=== PATIENT | female | born 1965 | race African-American/Black ===

== ENCOUNTER 2019-03-14 22:14 | Observation (INO) | payer MEDICARE, OTHER ==
[~2019-03-14] VITALS: Ht 172.7 cm; Wt 80.3 kg
[2019-03-14] MEDS ORDERED: Hydrocortisone 100mg Inj IV ONE (22:30)
[2019-03-14] MEDS ORDERED: LORazepam Inj 2mg/ml 1ml IV ONE (22:30)
--- NOTE | 2019-03-14 22:36 | Emergency Room Report ---
History of Present Illness General Chief Complaint: Altered Level of Consciousness Source: Family Member, EMS Present Illness HPI Patient's mother was called by the patient's children because she was having some shaking episodes and speaking incoherently. Patient's mother tried to take her to the hospital but the patient was acting bizarrely and she pulled over and called 911. Paramedics were summoned. They were unable to get much history aside from that the patient has a history of lupus and migraines. An Accu-Chek in the field was 68 sitting and they had sinus bradycardia on EKG. The patient was unable to answer any questions with them. Here the patient will not respond whether she is having pain. She does have a history of migraines according to the mother. Mom denies any drug use that she is aware of. Patient is not answering questions at this time. Allergies: Coded Allergies: No Known Allergies (Verified , 09/07/06) UNABLE TO ASSESS (Unverified , 03/14/19) Patient History Limited by: medical condition Past Medical History: see triage record, migraines Social History: Reports: drug use - thc Social History Narrative with family Last Menstrual Period: n/a Reviewed Nursing Documentation: PMH: Agreed; PSxH: Agreed Nursing Documentation-PMH Past Medical History: No History, Except For Review of Systems All Other Systems: limited Physical Exam Vital Signs Date Time Temp Pulse Resp B/P (MAP) Pulse Ox O2 Delivery O2 Flow Rate FiO2 03/14/19 22:10 98.2 90 18 118/59 97 Sp02 EP Interpretation: reviewed, normal General Appearance: alert - not answering questions, states she wants to go home, mild distress Head: normocephalic Eyes: bilateral eye normal inspection, bilateral eye PERRL, bilateral eye EOMI ENT: moist mucus membranes Neck: supple Respiratory: lungs clear, normal breath sounds Cardiovascular #1: regular rate, rhythm Cardiovascular #2: 2+ radial (R) Gastrointestinal: normal inspection, normal bowel sounds, non tender, no mass, non-distended Musculoskeletal: back normal, normal range of motion Neurologic: alert, tube closing machine operator III-XII nml as tested, motor strength/tone normal, DTRs symmetric, sensory intact, other - not answering questions, perseveration Psychiatric: anxious Skin: normal inspection, warm/dry Medical Decision Making Diagnostic Impression: Primary Impression: Transient alteration of awareness Additional Impression: Migraine Qualified Codes: G43.809 - Other migraine, not intractable, without status migrainosus ER Course Patient presents with altered level of consciousness with history of lupus and migraines. At this point she has a nonfocal neurologic exam. Differential includes cerebritis, electrolyte imbalance, steroid withdrawal, exacerbation of underlying psychiatric illness, migraine variant, brain bleed, partial complex seizures amongst others. The patient will be evaluated with CT of the head, chest x-ray, EKG and labs including sedimentation rate and TSH ammonia and lactic acid. The patient will be given a dose of hydrocortisone and also Ativan. EKG without injury. CT head no acute pathology. CXR clear. Labs unremarkable except for slightly elevated LFTs. Patient improving, but still not answering questions. More calm Family state lupus has been in remission for many years and that patient not taking prednisone. Patient now Ox3 but does not remember coming into the hospital. C/O headache. Reglan and Benadryl given with improvement. Due to severe nature of initial presentation, patient admitted for observation on telemetry. Discussed with Dr. Zimmerman. Laboratory Tests Test 03/14/19 22:25 03/14/19 23:00 03/15/19 04:45 White Blood Count 3.8 K/UL (4.8-10.8) L 3.9 K/UL (4.8-10.8) L Red Blood Count 4.51 M/UL (4.20-5.40) 3.93 M/UL (4.20-5.40) L Hemoglobin 12.9 G/DL (12.0-16.0) 11.3 G/DL (12.0-16.0) L Hematocrit 39.4 % (37.0-47.0) 35.3 % (37.0-47.0) L Mean Corpuscular Volume 87 FL (80-99) 90 FL (80-99) Mean Corpuscular Hemoglobin 28.6 PG (27.0-31.0) 28.8 PG (27.0-31.0) Mean Corpuscular Hemoglobin Concent 32.7 G/DL (32.0-36.0) 32.0 G/DL (32.0-36.0) Red Cell Distribution Width 13.4 % (11.6-14.8) 13.8 % (11.6-14.8) Platelet Count 316 K/UL (150-450) 268 K/UL (150-450) Mean Platelet Volume 5.8 FL (6.5-10.1) L 6.3 FL (6.5-10.1) L Neutrophils (%) (Auto) 54.1 % (45.0-75.0) % (45.0-75.0) Lymphocytes (%) (Auto) 36.9 % (20.0-45.0) % (20.0-45.0) Monocytes (%) (Auto) 7.8 % (1.0-10.0) % (1.0-10.0) Eosinophils (%) (Auto) 0.0 % (0.0-3.0) % (0.0-3.0) Basophils (%) (Auto) 1.2 % (0.0-2.0) % (0.0-2.0) Sodium Level 138 MMOL/L (136-145) 143 MMOL/L (136-145) Potassium Level 3.9 MMOL/L (3.5-5.1) 3.4 MMOL/L (3.5-5.1) L Chloride Level 101 MMOL/L (98-107) 107 MMOL/L (98-107) Carbon Dioxide Level 23 MMOL/L (21-32) 24 MMOL/L (21-32) Anion Gap 14 mmol/L (5-15) 12 mmol/L (5-15) Blood Urea Nitrogen 9 mg/dL (7-18) 10 mg/dL (7-18) Creatinine 0.8 MG/DL (0.55-1.30) 0.7 MG/DL (0.55-1.30) Estimate Glomerular Filtration Rate > 60 mL/min (>60) > 60 mL/min (>60) Glucose Level 90 MG/DL (74-106) 95 MG/DL (74-106) Lactic Acid Level 1.80 mmol/L (0.4-2.0) Calcium Level 9.8 MG/DL (8.5-10.1) 8.6 MG/DL (8.5-10.1) Total Bilirubin 1.5 MG/DL (0.2-1.0) H Direct Bilirubin 0.2 MG/DL (0.0-0.3) Aspartate Amino Transferase (AST) 45 U/L (15-37) H Alanine Aminotransferase (ALT) 27 U/L (12-78) Alkaline Phosphatase 66 U/L (46-116) Ammonia 14 umol/L (11-32) < 10 umol/L (11-32) L Total Creatine Kinase 94 U/L (26-308) Troponin I 0.000 ng/mL (0.000-0.056) Total Protein 8.3 G/DL (6.4-8.2) H Albumin 4.4 G/DL (3.4-5.0) Globulin 3.9 g/dL Albumin/Globulin Ratio 1.1 (1.0-2.7) Thyroid Stimulating Hormone (TSH) 0.729 uiU/mL (0.358-3.740) Salicylates Level < 2.0 ug/mL (2.8-20) L Acetaminophen Level < 2 MCG/ML (10-30) L Serum Alcohol < 3 mg/dL Urine Color Yellow Urine Appearance Clear Urine pH 9 (4.5-8.0) Urine Specific [place] 1.015 (1.005-1.035) Urine Protein 1+ (NEGATIVE) H Urine Glucose (UA) Negative (NEGATIVE) Urine Ketones 4+ (NEGATIVE) H Urine Blood Negative (NEGATIVE) Urine Nitrite Negative (NEGATIVE) Urine Bilirubin Negative (NEGATIVE) Urine Urobilinogen Normal MG/DL (0.0-1.0) Urine Leukocyte Esterase 1+ (NEGATIVE) H Urine RBC 0 /HPF (0 - 2) Urine WBC 0-2 /HPF (0 - 2) Urine Squamous Epithelial Cells None /LPF (NONE/OCC) Urine Bacteria None /HPF (NONE) Urine Mucus Moderate /LPF (NONE/OCC) H Urine Opiates Screen Negative (NEGATIVE) Urine Barbiturates Screen Negative (NEGATIVE) Phencyclidine (PCP) Screen Negative (NEGATIVE) Urine Amphetamines Screen Negative (NEGATIVE) Urine Benzodiazepines Screen Negative (NEGATIVE) Urine Cocaine Screen Negative (NEGATIVE) Urine Marijuana (THC) Screen Positive (NEGATIVE) H Differential Total Cells Counted 100 Neutrophils % (Manual) 87 % (45-75) H Lymphocytes % (Manual) 10 % (20-45) L Monocytes % (Manual) 3 % (1-10) Eosinophils % (Manual) 0 % (0-3) Basophils % (Manual) 0 % (0-2) Band Neutrophils 0 % (0-8) Platelet Estimate Adequate Platelet Morphology Normal Red Blood Cell Morphology Hypochromasia 1+ Erythrocyte Sedimentation Rate 26 MM/HR (0-30) Phosphorus Level 3.8 MG/DL (2.5-4.9) Magnesium Level 1.6 MG/DL (1.8-2.4) L C-Reactive Protein, Quantitative < 0.4 mg/dL (0.00-0.90) Vitamin B12 Level 466 PG/ML (193-986) Folate 18.9 NG/ML (8.6-58.9) Rapid Plasma Reagin Pending EKG Diagnostic Results Rate: bradycardiac Rhythm: NSR ST Segments: no acute changes Rhythm Strip Diag. Results EP Interpretation: yes Rhythm: no PVC's, no ectopy, other - kayla rate 49 Chest X-Ray Diagnostic Results Chest X-Ray Diagnostic Results : Chest X-Ray Ordered: Yes # of Views/Limited/Complete: 1 View Indication: Other EP Interpretation: Yes Interpretation: no consolidation, no effusion, no pneumothorax Impression: No acute disease Electronically Signed by: Electronically signed by Uday Jones MD CT/MRI/US Diagnostic Results CT/MRI/US Diagnostic Results : Imaging Test Ordered: head Impression no lesions Last Vital Signs Date Time Temp Pulse Resp B/P (MAP) Pulse Ox O2 Delivery O2 Flow Rate FiO2 03/15/19 04:00 98.4 56 18 108/59 (75) 99 03/15/19 02:00 Room Air Status: improved Disposition: PLACE IN OBSERVATION Condition: Serious Uday Jones MD Mar 14, 2019 22:36
[2019-03-14 22:46] LABS: BASOPHILS % (AUTO) 1.2 % (0.0-2.0); HEMATOCRIT 39.4 % (37.0-47.0); HEMOGLOBIN 12.9 G/DL (12.0-16.0); LYMPHOCYTES % (AUTO) 36.9 % (20.0-45.0); MEAN CORPUSCULAR VOLUME 87 FL (80-99); MONOCYTES % (AUTO) 7.8 % (1.0-10.0); NEUTROPHILS % (AUTO) 54.1 % (45.0-75.0); PLATELET COUNT 316 K/UL (150-450); RED BLOOD COUNT 4.51 M/UL (4.20-5.40); RED CELL DISTRIBUTION WIDTH 13.4 % (11.6-14.8); WHITE BLOOD COUNT 3.8 K/UL (4.8-10.8)
[2019-03-14 22:50] VITALS: BP 118/59
[2019-03-14 22:59] LABS: ANION GAP 14 mmol/L (5-15); BLOOD UREA NITROGEN 9 mg/dL (7-18); CALCIUM 9.8 MG/DL (8.5-10.1); CARBON DIOXIDE 23 MMOL/L (21-32); CHLORIDE 101 MMOL/L (98-107); CREATININE 0.8 MG/DL (0.55-1.30); POTASSIUM 3.9 MMOL/L (3.5-5.1); SODIUM 138 MMOL/L (136-145)
[2019-03-14 23:10] LABS: APPEARANCE,URINE CLEAR; BILIRUBIN, URINE NEGATIVE (NEGATIVE); GLUCOSE, URINE (UA) NEGATIVE (NEGATIVE); KETONES,URINE 4+ (NEGATIVE); LEUKOCYTE ESTERASE ,URINE 1+ (NEGATIVE); NITRITE,URINE NEGATIVE (NEGATIVE); PH,URINE 9 (4.5-8.0); PROTEIN,URINE 1+ (NEGATIVE); UROBILINOGEN,URINE NORMAL MG/DL (0.0-1.0)
[2019-03-14 23:11] LABS: COLOR,URINE YELLOW
[2019-03-14 23:13] LABS: ALANINE AMINOTRANSFERASE 27 U/L (12-78); ALBUMIN 4.4 G/DL (3.4-5.0); ALBUMIN/GLOBULIN RATIO 1.1 (1.0-2.7); ALKALINE PHOSPHATASE 66 U/L (46-116); ASPARTATE AMINO TRANSFERASE 45 U/L (15-37); BILIRUBIN,TOTAL 1.5 MG/DL (0.2-1.0); CREATINE KINASE 94 U/L (26-308)
[2019-03-14 23:14] LABS: BILIRUBIN,DIRECT 0.2 MG/DL (0.0-0.3)
[2019-03-15] VITALS (8 sets, daily range): BP systolic 108–134; BP diastolic 59–77
[2019-03-15] MEDS ORDERED: D5NS 1000ml IV ONE (00:33)
[2019-03-15] MEDS ORDERED: Tubing IV Secondary IV ONE (00:33)
[2019-03-15] MEDS ORDERED: NS 275ml ONE (00:33)
[2019-03-15] MEDS ORDERED: Metoclopramide 10mg/2ml Inj IVP ONE (00:45)
[2019-03-15] MEDS ORDERED: DiphenhydrAMINE 50mg/ml Inj IVP ONE (00:45)
--- NOTE | 2019-03-15 03:00 | General Progress Note ---
Assessment/Plan Plan: [facility] An independent Hospitalist group, where every patient is our [facility] Internal Medicine and Hospitalist Overnight Note Please contact us at Please text me on Voalte from 8a-6p regarding any patient questions From 6p-8a please call [phone] Case discussed with ED Physician. Chart, labs, imaging, vitals and other flowsheets reviewed. Patient presents with chest pain Plan overnight will be admit under observation to [facility] for troponins and ekg's Full admission orders completed. Full and complete H+P to follow Time of note may not reflect time of encounter. Signed: Yvonne Zimmerman DO [facility] Pager: [phone] Subjective Allergies: Coded Allergies: No Known Allergies (Verified , 09/07/06) UNABLE TO ASSESS (Unverified , 03/14/19) Objective Last 24 Hour Vital Signs Date Time Temp Pulse Resp B/P (MAP) Pulse Ox O2 Delivery O2 Flow Rate FiO2 03/15/19 01:55 98.2 59 16 116/77 (90) 100 03/15/19 01:45 98.2 79 19 121/64 100 Room Air 03/15/19 01:42 98.2 79 19 121/64 100 Room Air 03/14/19 22:50 56 18 Room Air 03/14/19 22:50 98.2 58 18 118/59 97 Room Air 03/14/19 22:10 98.2 90 18 118/59 97 Intake and Output 03/14/19 03/15/19 18:59 06:59 Intake Total 1000 ml Balance 1000 ml Intake IV Total 1000 ml # Voids 1 Laboratory Tests 03/14/19 22:25: White Blood Count 3.8L, Red Blood Count 4.51, Hemoglobin 12.9, Hematocrit 39.4, Mean Corpuscular Volume 87, Mean Corpuscular Hemoglobin 28.6, Mean Corpuscular Hemoglobin Concent 32.7, Red Cell Distribution Width 13.4, Platelet Count 316, Mean Platelet Volume 5.8L, Neutrophils (%) (Auto) 54.1, Lymphocytes (%) (Auto) 36.9, Monocytes (%) (Auto) 7.8, Eosinophils (%) (Auto) 0.0, Basophils (%) (Auto ) 1.2, Sodium Level 138, Potassium Level 3.9, Chloride Level 101, Carbon Dioxide Level 23, Anion Gap 14, Blood Urea Nitrogen 9, Creatinine 0.8, Estimat Glomerular Filtration Rate > 60, Glucose Level 90, Lactic Acid Level 1.80, Calcium Level 9.8, Total Bilirubin 1.5H, Direct Bilirubin 0.2, Aspartate Amino Transf (AST/SGOT) 45H, Alanine Aminotransferase (ALT/SGPT) 27, Alkaline Phosphatase 66, Ammonia 14, Total Creatine Kinase 94, Troponin I 0.000, Total Protein 8.3H, Albumin 4.4, Globulin 3.9, Albumin/Globulin Ratio 1.1, Thyroid Stimulating Hormone (TSH) 0.729, Salicylates Level < 2.0L, Acetaminophen Level < 2L, Serum Alcohol < 3 03/14/19 23:00: Urine Color Yellow, Urine Appearance Clear, Urine pH 9, Urine Specific [place] 1.015, Urine Protein 1+H, Urine Glucose (UA) Negative, Urine Ketones 4+H, Urine Blood Negative, Urine Nitrite Negative, Urine Bilirubin Negative, Urine Urobilinogen Normal, Urine Leukocyte Esterase 1+H, Urine RBC 0, Urine WBC 0-2, Urine Squamous Epithelial Cells None, Urine Bacteria None, Urine Mucus ModerateH , Urine Opiates Screen Negative, Urine Barbiturates Screen Negative, Phencyclidine (PCP) Screen Negative, Urine Amphetamines Screen Negative, Urine Benzodiazepines Screen Negative, Urine Cocaine Screen Negative, Urine Marijuana (THC) Screen PositiveH Height (Feet): 5 Height (Inches): 8.00 Weight (Pounds): 150 Yvonne Zimmerman DO Mar 15, 2019 03:00
[2019-03-15] MEDS ORDERED: LORazepam Inj 2mg/ml 1ml IV PRN (03:15)
[2019-03-15] MEDS ORDERED: Milk of Magnesia 30ml Ud ORAL PRN (03:15)
[2019-03-15] MEDS ORDERED: Acetaminophen 650 MG SUPP RECTAL PRN ×2 (03:15)
[2019-03-15] MEDS ORDERED: LORazepam 1mg tab ORAL PRN (03:15)
[2019-03-15] MEDS: HYDROmorphone 1mg/ml Carpuject IVP PRN ×2 (04:08→11:49)
[2019-03-15] MEDS ORDERED: Enoxaparin 40mg Inj SUBQ SCH (04:15)
[2019-03-15 06:03] LABS: HEMATOCRIT 35.3 % (37.0-47.0); HEMOGLOBIN 11.3 G/DL (12.0-16.0); MEAN CORPUSCULAR VOLUME 90 FL (80-99); PLATELET COUNT 268 K/UL (150-450); RED BLOOD COUNT 3.93 M/UL (4.20-5.40); RED CELL DISTRIBUTION WIDTH 13.8 % (11.6-14.8); WHITE BLOOD COUNT 3.9 K/UL (4.8-10.8)
[2019-03-15 06:36] LABS: ANION GAP 12 mmol/L (5-15); BLOOD UREA NITROGEN 10 mg/dL (7-18); CALCIUM 8.6 MG/DL (8.5-10.1); CARBON DIOXIDE 24 MMOL/L (21-32); CHLORIDE 107 MMOL/L (98-107); CREATININE 0.7 MG/DL (0.55-1.30); PHOSPHORUS 3.8 MG/DL (2.5-4.9); POTASSIUM 3.4 MMOL/L (3.5-5.1); SODIUM 143 MMOL/L (136-145)
[2019-03-15 06:46] LABS: AMMONIA < 10 umol/L (11-32)
[2019-03-15] MEDS: Docusate 100mg cap ORAL SCH ×2 (08:34→21:00)
[2019-03-15] MEDS ORDERED: Gadavist 7.5mMol/7.5ml vial IV PRN (09:00)
--- NOTE | 2019-03-15 09:01 | History & Physical ---
History and Physical History & Physicial Pt seen and examined at bedside, case d/w RN and family member at bedside as well (sister). Full H+P to follow Admitted for shaking on the ground, no hx of seizure disorder however does have history of lupus, pt denies taking any medications, however she is not alert and oriented on my exam. Will start IV fluids, reg diet. Pt denied chest pain. Will ask for Neurology consult and MRI brain to r/o lupus cerebritis. Place pt in seizure precautions. Emely Lewis MD Mar 15, 2019 09:01
[2019-03-15] MEDS: Ketorolac 30mg Inj IV PRN ×2 (09:29→16:54)
--- NOTE | 2019-03-15 09:38 | Diagnostic Imaging Report ---
EXAM: XR Chest, 1 View CLINICAL HISTORY: SOB TECHNIQUE: Frontal view of the chest. COMPARISON: Chest x-ray, 03/14/19 3665 FINDINGS: Lungs: Unremarkable. No consolidation. Pleural space: Unremarkable. No pneumothorax. Heart: Unremarkable. No cardiomegaly. Mediastinum: Unremarkable. Bones/joints: Unremarkable. IMPRESSION: No acute process.
[2019-03-15] MEDS: D5NS 1,000 ML IV SCH ×2 (11:38→23:45)
--- NOTE | 2019-03-15 12:14 | Diagnostic Imaging Report ---
EXAM: MR Head Without And With Intravenous Contrast CLINICAL HISTORY: ALOC, H/A,SEIZURES, 15CC GADAVIST ADMINISTERED TECHNIQUE: Magnetic resonance images of the head/brain without and with intravenous contrast in multiple planes. COMPARISON: CT head 03/14/19 FINDINGS: Brain: Unremarkable. No mass. No hemorrhage. No acute infarct. No abnormal enhancement Ventricles: Unremarkable. No ventriculomegaly. Bones/joints: Hyperostosis of the skull. Soft tissues: Fatty scalp with the thinned areas of the scalp bilaterally Sinuses: Mild ethmoid sinus mucosal thickening. No acute sinusitis. Mastoid air cells: Unremarkable as visualized. No mastoid effusion. Orbits: Unremarkable as visualized. IMPRESSION: No acute findings.
--- NOTE | 2019-03-15 16:30 | Consultation ---
History of Present Illness General Date patient seen: Mar 15, 2019 Chief Complaint: Altered Level of Consciousness Referring physician: Dr. Emely Lewis Present Illness HPI The patient is a 53-year-old woman with a history of lupus and migraines, who was admitted with altered mental status. She reports that she had a very bad migraine today and knows she was found shaking on the floor this afternoon by her daugher. As per ED notes, patient's mother was called by the patient's children because she was having some shaking episodes and speaking incoherently. At this point, she patient's mother tried to take her to the hospital but the patient was acting bizarrely and she pulled over and called 911. She has a long history of migraines and is treated for them at [facility]. She also has a history of lupus, but family states she is in remission. This evening she reports that her headache has resolved and that she has been given pain medication. She denies every having had an episode like the one she had today previously today. She also reports that she is currently under management with [facility] neurology for her migraine treatment. She has previously taken sumatriptan shots/ oral tablets , as well as other preventative monthly injections that she cannot currently name. She is intact with no focal deficits on exam at this time. She is still minorly photophobic. She has been out of bed this evening and ambulated without difficulty to the bathroom. Allergies: Coded Allergies: No Known Allergies (Verified , 09/07/06) UNABLE TO ASSESS (Unverified , 03/14/19) Medication History No Active Prescriptions or Reported Meds Patient History Limited by: medical condition History Provided By: Patient Healthcare decision maker Resuscitation status Full Code Advanced Directive on File Past Medical/Surgical History Past Medical/Surgical History: (1) SLE (systemic lupus erythematosus) (2) Migraine Review of Systems Constitutional: Reports: see HPI Eye: Reports: see HPI ENT: Denies: no symptoms, see HPI, ear pain, ear discharge, nose pain, nose congestion, throat pain, throat swelling, mouth pain, hearing loss, nasal discharge, other Respiratory: Denies: no symptoms, see HPI, cough, orthopnea, shortness of breath, stridor, wheezing, [place], sputum, other Cardiovascular: Denies: no symptoms, see HPI, chest pain, edema, palpitations, syncope, PND, other Gastrointestinal: Denies: no symptoms, see HPI, abdominal pain, constipation, diarrhea, nausea, vomiting, melena, hematemesis, other Genitourinary: Denies: no symptoms, see HPI, discharge, dysuria, frequency, hematuria, pain, retention, incontinence, urgency, vag bleed/dc, other Musculoskeletal: Denies: no symptoms, see HPI, back pain, gout, joint pain, joint swelling, muscle pain, muscle stiffness, other Skin: Denies: no symptoms, see HPI, rash, change in color, change in hair/nails , dryness, lesions, other Psychiatric: Denies: no symptoms, see HPI, prior hx, anxiety, depressed feelings, emotional problems, SI, HI, hallucinations, other Neurological: Reports: see HPI Endocrine: Denies: no symptoms, see HPI, excessive sweating, flushing, intolerance to temperature, increased thirst, increased urine, unexplained weight loss, other Hematologic/Lymphatic: Denies: no symptoms, see HPI, anemia, blood clots, easy bleeding, easy bruising, swollen glands, diathesis, other Physical Exam General Appearance: WD/WN, no apparent distress, alert Lines, tubes and drains: peripheral HEENT: normocephalic, atraumatic, anicteric, mucous membranes moist, PERRL Neck: non-tender, normal alignment, supple, normal inspection Respiratory/Chest: chest wall non-tender, lungs clear Cardiovascular/Chest: normal peripheral pulses Extremities: normal range of motion, non-tender, normal inspection, no calf tenderness, normal capillary refill, non-pitting, no edema Skin Exam: normal pigmentation, warm/dry 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, no motor/sensory deficits, alert, oriented x 3, responsive, normal mood/affect, no Babinski Musculoskeletal: normal muscle bulk, no effusion Last 24 Hour Vital Signs Date Time Temp Pulse Resp B/P (MAP) Pulse Ox O2 Delivery O2 Flow Rate FiO2 03/15/19 16:00 97.0 61 18 113/63 (80) 99 03/15/19 12:00 98.1 57 18 123/73 (90) 99 03/15/19 11:35 59 03/15/19 08:00 98.4 59 18 110/69 (83) 100 03/15/19 07:40 54 03/15/19 06:50 58 108/66 (80) 03/15/19 06:31 Room Air 03/15/19 04:00 98.4 56 18 108/59 (75) 99 03/15/19 03:38 59 03/15/19 02:00 Room Air 03/15/19 01:58 68 03/15/19 01:55 98.2 59 16 116/77 (90) 100 03/15/19 01:45 98.2 79 19 121/64 100 Room Air 03/15/19 01:42 98.2 79 19 121/64 100 Room Air 03/14/19 22:50 56 18 Room Air 03/14/19 22:50 98.2 58 18 118/59 97 Room Air 03/14/19 22:10 98.2 90 18 118/59 97 Intake and Output 03/14/19 03/15/19 19:00 07:00 Intake Total 1000 ml Balance 1000 ml Intake IV Total 1000 ml # Voids 1 Laboratory Tests Test 03/14/19 22:25 03/14/19 23:00 03/15/19 04:45 White Blood Count 3.8 K/UL (4.8-10.8) L 3.9 K/UL (4.8-10.8) L Red Blood Count 4.51 M/UL (4.20-5.40) 3.93 M/UL (4.20-5.40) L Hemoglobin 12.9 G/DL (12.0-16.0) 11.3 G/DL (12.0-16.0) L Hematocrit 39.4 % (37.0-47.0) 35.3 % (37.0-47.0) L Mean Corpuscular Volume 87 FL (80-99) 90 FL (80-99) Mean Corpuscular Hemoglobin 28.6 PG (27.0-31.0) 28.8 PG (27.0-31.0) Mean Corpuscular Hemoglobin Concent 32.7 G/DL (32.0-36.0) 32.0 G/DL (32.0-36.0) Red Cell Distribution Width 13.4 % (11.6-14.8) 13.8 % (11.6-14.8) Platelet Count 316 K/UL (150-450) 268 K/UL (150-450) Mean Platelet Volume 5.8 FL (6.5-10.1) L 6.3 FL (6.5-10.1) L Neutrophils (%) (Auto) 54.1 % (45.0-75.0) % (45.0-75.0) Lymphocytes (%) (Auto) 36.9 % (20.0-45.0) % (20.0-45.0) Monocytes (%) (Auto) 7.8 % (1.0-10.0) % (1.0-10.0) Eosinophils (%) (Auto) 0.0 % (0.0-3.0) % (0.0-3.0) Basophils (%) (Auto) 1.2 % (0.0-2.0) % (0.0-2.0) Sodium Level 138 MMOL/L (136-145) 143 MMOL/L (136-145) Potassium Level 3.9 MMOL/L (3.5-5.1) 3.4 MMOL/L (3.5-5.1) L Chloride Level 101 MMOL/L (98-107) 107 MMOL/L (98-107) Carbon Dioxide Level 23 MMOL/L (21-32) 24 MMOL/L (21-32) Anion Gap 14 mmol/L (5-15) 12 mmol/L (5-15) Blood Urea Nitrogen 9 mg/dL (7-18) 10 mg/dL (7-18) Creatinine 0.8 MG/DL (0.55-1.30) 0.7 MG/DL (0.55-1.30) Estimat Glomerular Filtration Rate > 60 mL/min (>60) > 60 mL/min (>60) Glucose Level 90 MG/DL (74-106) 95 MG/DL (74-106) Lactic Acid Level 1.80 mmol/L (0.4-2.0) Calcium Level 9.8 MG/DL (8.5-10.1) 8.6 MG/DL (8.5-10.1) Total Bilirubin 1.5 MG/DL (0.2-1.0) H Direct Bilirubin 0.2 MG/DL (0.0-0.3) Aspartate Amino Transf (AST/SGOT) 45 U/L (15-37) H Alanine Aminotransferase (ALT/SGPT) 27 U/L (12-78) Alkaline Phosphatase 66 U/L (46-116) Ammonia 14 umol/L (11-32) < 10 umol/L (11-32) L Total Creatine Kinase 94 U/L (26-308) Troponin I 0.000 ng/mL (0.000-0.056) Total Protein 8.3 G/DL (6.4-8.2) H Albumin 4.4 G/DL (3.4-5.0) Globulin 3.9 g/dL Albumin/Globulin Ratio 1.1 (1.0-2.7) Thyroid Stimulating Hormone (TSH) 0.729 uiU/mL (0.358-3.740) Salicylates Level < 2.0 ug/mL (2.8-20) L Acetaminophen Level < 2 MCG/ML (10-30) L Serum Alcohol < 3 mg/dL Urine Color Yellow Urine Appearance Clear Urine pH 9 (4.5-8.0) Urine Specific [place] 1.015 (1.005-1.035) Urine Protein 1+ (NEGATIVE) H Urine Glucose (UA) Negative (NEGATIVE) Urine Ketones 4+ (NEGATIVE) H Urine Blood Negative (NEGATIVE) Urine Nitrite Negative (NEGATIVE) Urine Bilirubin Negative (NEGATIVE) Urine Urobilinogen Normal MG/DL (0.0-1.0) Urine Leukocyte Esterase 1+ (NEGATIVE) H Urine RBC 0 /HPF (0 - 2) Urine WBC 0-2 /HPF (0 - 2) Urine Squamous Epithelial Cells None /LPF (NONE/OCC) Urine Bacteria None /HPF (NONE) Urine Mucus Moderate /LPF (NONE/OCC) H Urine Opiates Screen Negative (NEGATIVE) Urine Barbiturates Screen Negative (NEGATIVE) Phencyclidine (PCP) Screen Negative (NEGATIVE) Urine Amphetamines Screen Negative (NEGATIVE) Urine Benzodiazepines Screen Negative (NEGATIVE) Urine Cocaine Screen Negative (NEGATIVE) Urine Marijuana (THC) Screen Positive (NEGATIVE) H Differential Total Cells Counted 100 Neutrophils % (Manual) 87 % (45-75) H Lymphocytes % (Manual) 10 % (20-45) L Monocytes % (Manual) 3 % (1-10) Eosinophils % (Manual) 0 % (0-3) Basophils % (Manual) 0 % (0-2) Band Neutrophils 0 % (0-8) Platelet Estimate Adequate Platelet Morphology Normal Red Blood Cell Morphology Hypochromasia 1+ Erythrocyte Sedimentation Rate 26 MM/HR (0-30) Phosphorus Level 3.8 MG/DL (2.5-4.9) Magnesium Level 1.6 MG/DL (1.8-2.4) L C-Reactive Protein, Quantitative < 0.4 mg/dL (0.00-0.90) Vitamin B12 Level 466 PG/ML (193-986) Folate 18.9 NG/ML (8.6-58.9) Rapid Plasma Reagin Pending Height (Feet): 5 Height (Inches): 8.00 Weight (Pounds): 177 Medications Current Medications Medications (Trade) Dose Ordered Sig/Allyson Route PRN Reason Start Time Stop Time Status Last Admin Dose Admin Acetaminophen (Tylenol) 650 mg Q4H PRN ORAL Mild Pain (Pain Scale 1-3) 03/15/19 03:15 04/14/19 03:14 03/15/19 13:07 Acetaminophen (Tylenol) 650 mg Q4H PRN ORAL fever 03/15/19 03:15 04/14/19 03:14 Acetaminophen (Tylenol) 650 mg Q4H PRN RECTAL Mild Pain (Pain Scale 1-3) 03/15/19 03:15 04/14/19 03:14 Acetaminophen (Tylenol) 650 mg Q4H PRN RECTAL fever 03/15/19 03:15 04/14/19 03:14 Bisacodyl (Dulcolax) 10 mg DAILYPRN PRN RECTAL Constipation 03/15/19 03:15 04/14/19 03:14 Dextrose (Dextrose 50%) 25 ml Q30M PRN IV Hypoglycemia 03/15/19 03:15 04/14/19 03:14 Dextrose (Dextrose 50%) 50 ml Q30M PRN IV Hypoglycemia 03/15/19 03:15 04/14/19 03:14 Dextrose/Sodium Chloride 1,000 ml @ 100 mls/hr Q10H IV 03/15/19 10:30 04/14/19 10:29 03/15/19 11:38 Docusate Sodium (Colace) 100 mg EVERY 12 HOURS ORAL 03/15/19 09:00 04/14/19 08:59 03/15/19 08:34 Enoxaparin Sodium (Lovenox) 40 mg Q24H SUBQ 03/15/19 04:15 04/14/19 04:14 03/15/19 04:09 Gadobutrol (Gadavist) 7.5 mmol NOW PRN IV Radiology Procedure 03/15/19 09:00 03/17/19 08:59 Hydromorphone HCl (Dilaudid) 0.5 mg Q6H PRN IVP breakthrouh 03/15/19 03:15 03/22/19 03:14 03/15/19 11:49 Ketorolac Tromethamine (Toradol 30mg) 15 mg Q6H PRN IV For Pain 03/15/19 08:00 03/20/19 07:59 03/15/19 09:29 Lorazepam (Ativan 2mg/ml 1ml) 0.5 mg Q4H PRN IV For Anxiety or seizure 03/15/19 03:15 03/22/19 03:14 Lorazepam (Ativan) 1 mg Q4H PRN ORAL For Anxiety / agitation 03/15/19 03:15 03/22/19 03:14 Magnesium Hydroxide (Mom) 30 ml HSPRN PRN ORAL Constipation 03/15/19 03:15 04/14/19 03:14 Ondansetron HCl (Zofran) 4 mg Q6H PRN IVP Nausea & Vomiting 03/15/19 03:15 04/14/19 03:14 03/15/19 14:41 Pantoprazole (Protonix) 40 mg DAILY ORAL 03/15/19 09:00 04/14/19 08:59 03/15/19 08:34 Assessment/Plan Problem List: (1) Migraine Assessment & Plan: Long, well recorded history but no episodes of LOC or shaking, or other focal deficit ever reported by the patient. Reporting that the symptoms of her headache have now largely resolved. ICD Codes: G43.909 - Migraine, unspecified, not intractable, without status migrainosus SNOMED: 19739916 Qualifiers: Qualified Codes: G43.809 - Other migraine, not intractable, without status migrainosus (2) Transient alteration of awareness Assessment & Plan: Found unconscious and shaking today by family member. Has never had a seizure or episode of LOC previously. Followed by neurology at [facility] for migraines. DIscussed that should be followed up with EEG as an outpatient with Neuro at [facility] ICD Codes: R40.4 - Transient alteration of awareness SNOMED: 670398000 (3) SLE (systemic lupus erythematosus) ICD Codes: M32.9 - Systemic lupus erythematosus, unspecified SNOMED: 17482230 Qualifiers: Status: doing well, stable, tolerating diet Stacey Cade N.P. Mar 15, 2019 16:30
[2019-03-15] MEDS ORDERED: HYDROmorphone 1mg/ml Carpuject IVP PRN ×2 (18:15→18:30)
[2019-03-15] MEDS ORDERED: HYDROmorphone 1mg/NS 50ml IVPB 50 ML IVPB PRN (18:15)
[2019-03-15] MEDS ORDERED: Hydromorphone 0.5mg/0.5ml inj IVP PRN (18:30)
--- NOTE | 2019-03-15 20:00 | History and Physical ---
History of Present Illness General Date patient seen: Mar 15, 2019 Time patient seen: 09:00 Reason for Hospitalization: Altered Level of Consciousness Present Illness HPI Patient is a 53 y/o AA female who presents with altered level of consciousness. Patient's mother was called by the patient's children because she was having some shaking episodes and speaking incoherently. Mpther states she was on the floor shaking. Patient's mother tried to take her to the hospital but the patient was acting bizarrely and she pulled over and called 911. Paramedics were summoned. They were unable to get much history aside from that the patient has a history of lupus and migraines. An Accu-Chek in the field was 68 sitting and they had sinus bradycardia on EKG. The patient was unable to answer any questions with them. She does have a history of migraines according to the mother. Mom denies any drug use that she is aware of. Patient admitted overnight from the ED. CT brain reportedly negative. Pt verbal and able to answer questions but "tunes out" of the conversation intermittently. Allergies: Coded Allergies: No Known Allergies (Verified , 09/07/06) UNABLE TO ASSESS (Unverified , 03/14/19) Patient History Limited by: medical condition History Provided By: Patient, Family Member, Medical Record Healthcare decision maker Resuscitation status Full Code Advanced Directive on File Past Medical/Surgical History Past Medical/Surgical History: (1) Migraine (2) SLE (systemic lupus erythematosus) Family History Family History: Patient reports no known family medical history. Social History Social History: (1) No significant social history Review of Systems ROS Narrative unobtainable due to patients altered mentation Physical Exam Physical Exam Narrative General: alert, uncooperative, no distress, appears stated age, at times inappropriate response to questions, disoriented Head: normocephalic, without obvious abnormality, atraumatic Eyes: conjunctivae/corneas clear. Throat: lips, mucosa, and tongue normal. MMM Neck: supple, symmetrical, trachea midline, and no JVD Lungs: clear to auscultation bilaterally Heart: regular rate and rhythm, S1, S2 normal, no murmur, click, rub or gallop Abdomen: soft, non-tender, non-distended, bowel sounds normal; no masses or organomegaly Extremities: extremities normal, atraumatic, no cyanosis or edema Pulses: 2+ and symmetric Skin: skin color, texture, turgor normal; no rashes or lesions Last 24 Hour Vital Signs Date Time Temp Pulse Resp B/P (MAP) Pulse Ox O2 Delivery O2 Flow Rate FiO2 03/15/19 16:00 97.0 61 18 113/63 (80) 99 03/15/19 16:00 91 03/15/19 12:00 98.1 57 18 123/73 (90) 99 03/15/19 11:35 59 03/15/19 08:00 98.4 59 18 110/69 (83) 100 03/15/19 07:40 54 03/15/19 06:50 58 108/66 (80) 03/15/19 06:31 Room Air 03/15/19 04:00 98.4 56 18 108/59 (75) 99 03/15/19 03:38 59 03/15/19 02:00 Room Air 03/15/19 01:58 68 03/15/19 01:55 98.2 59 16 116/77 (90) 100 03/15/19 01:45 98.2 79 19 121/64 100 Room Air 03/15/19 01:42 98.2 79 19 121/64 100 Room Air 03/14/19 22:50 56 18 Room Air 03/14/19 22:50 98.2 58 18 118/59 97 Room Air 03/14/19 22:10 98.2 90 18 118/59 97 Intake and Output 03/14/19 03/15/19 19:00 07:00 Intake Total 1000 ml Balance 1000 ml IV Total 1000 ml # Voids 1 Laboratory Tests Test 03/14/19 22:25 03/14/19 23:00 03/15/19 04:45 03/15/19 17:18 White Blood Count 3.8 K/UL (4.8-10.8) L 3.9 K/UL (4.8-10.8) L Red Blood Count 4.51 M/UL (4.20-5.40) 3.93 M/UL (4.20-5.40) L Hemoglobin 12.9 G/DL (12.0-16.0) 11.3 G/DL (12.0-16.0) L Hematocrit 39.4 % (37.0-47.0) 35.3 % (37.0-47.0) L Mean Corpuscular Volume 87 FL (80-99) 90 FL (80-99) Mean Corpuscular Hemoglobin 28.6 PG (27.0-31.0) 28.8 PG (27.0-31.0) Mean Corpuscular Hemoglobin Concent 32.7 G/DL (32.0-36.0) 32.0 G/DL (32.0-36.0) Red Cell Distribution Width 13.4 % (11.6-14.8) 13.8 % (11.6-14.8) Platelet Count 316 K/UL (150-450) 268 K/UL (150-450) Mean Platelet Volume 5.8 FL (6.5-10.1) L 6.3 FL (6.5-10.1) L Neutrophils (%) (Auto) 54.1 % (45.0-75.0) % (45.0-75.0) Lymphocytes (%) (Auto) 36.9 % (20.0-45.0) % (20.0-45.0) Monocytes (%) (Auto) 7.8 % (1.0-10.0) % (1.0-10.0) Eosinophils (%) (Auto) 0.0 % (0.0-3.0) % (0.0-3.0) Basophils (%) (Auto) 1.2 % (0.0-2.0) % (0.0-2.0) Sodium Level 138 MMOL/L (136-145) 143 MMOL/L (136-145) Potassium Level 3.9 MMOL/L (3.5-5.1) 3.4 MMOL/L (3.5-5.1) L Chloride Level 101 MMOL/L (98-107) 107 MMOL/L (98-107) Carbon Dioxide Level 23 MMOL/L (21-32) 24 MMOL/L (21-32) Anion Gap 14 mmol/L (5-15) 12 mmol/L (5-15) Blood Urea Nitrogen 9 mg/dL (7-18) 10 mg/dL (7-18) Creatinine 0.8 MG/DL (0.55-1.30) 0.7 MG/DL (0.55-1.30) Estimat Glomerular Filtration Rate > 60 mL/min (>60) > 60 mL/min (>60) Glucose Level 90 MG/DL (74-106) 95 MG/DL (74-106) Lactic Acid Level 1.80 mmol/L (0.4-2.0) Calcium Level 9.8 MG/DL (8.5-10.1) 8.6 MG/DL (8.5-10.1) Total Bilirubin 1.5 MG/DL (0.2-1.0) H Direct Bilirubin 0.2 MG/DL (0.0-0.3) Aspartate Amino Transf (AST/SGOT) 45 U/L (15-37) H Alanine Aminotransferase (ALT/SGPT) 27 U/L (12-78) Alkaline Phosphatase 66 U/L (46-116) Ammonia 14 umol/L (11-32) < 10 umol/L (11-32) L < 10 umol/L (11-32) L Total Creatine Kinase 94 U/L (26-308) Troponin I 0.000 ng/mL (0.000-0.056) Total Protein 8.3 G/DL (6.4-8.2) H Albumin 4.4 G/DL (3.4-5.0) Globulin 3.9 g/dL Albumin/Globulin Ratio 1.1 (1.0-2.7) Thyroid Stimulating Hormone (TSH) 0.729 uiU/mL (0.358-3.740) Salicylates Level < 2.0 ug/mL (2.8-20) L Acetaminophen Level < 2 MCG/ML (10-30) L Serum Alcohol < 3 mg/dL Urine Color Yellow Urine Appearance Clear Urine pH 9 (4.5-8.0) Urine Specific [place] 1.015 (1.005-1.035) Urine Protein 1+ (NEGATIVE) H Urine Glucose (UA) Negative (NEGATIVE) Urine Ketones 4+ (NEGATIVE) H Urine Blood Negative (NEGATIVE) Urine Nitrite Negative (NEGATIVE) Urine Bilirubin Negative (NEGATIVE) Urine Urobilinogen Normal MG/DL (0.0-1.0) Urine Leukocyte Esterase 1+ (NEGATIVE) H Urine RBC 0 /HPF (0 - 2) Urine WBC 0-2 /HPF (0 - 2) Urine Squamous Epithelial Cells None /LPF (NONE/OCC) Urine Bacteria None /HPF (NONE) Urine Mucus Moderate /LPF (NONE/OCC) H Urine Opiates Screen Negative (NEGATIVE) Urine Barbiturates Screen Negative (NEGATIVE) Phencyclidine (PCP) Screen Negative (NEGATIVE) Urine Amphetamines Screen Negative (NEGATIVE) Urine Benzodiazepines Screen Negative (NEGATIVE) Urine Cocaine Screen Negative (NEGATIVE) Urine Marijuana (THC) Screen Positive (NEGATIVE) H Differential Total Cells Counted 100 Neutrophils % (Manual) 87 % (45-75) H Lymphocytes % (Manual) 10 % (20-45) L Monocytes % (Manual) 3 % (1-10) Eosinophils % (Manual) 0 % (0-3) Basophils % (Manual) 0 % (0-2) Band Neutrophils 0 % (0-8) Platelet Estimate Adequate Platelet Morphology Normal Red Blood Cell Morphology Hypochromasia 1+ Erythrocyte Sedimentation Rate 26 MM/HR (0-30) Phosphorus Level 3.8 MG/DL (2.5-4.9) Magnesium Level 1.6 MG/DL (1.8-2.4) L C-Reactive Protein, Quantitative < 0.4 mg/dL (0.00-0.90) Vitamin B12 Level 466 PG/ML (193-986) Folate 18.9 NG/ML (8.6-58.9) Rapid Plasma Reagin Pending Height (Feet): 5 Height (Inches): 8.00 Weight (Pounds): 177 Medications Current Medications Medications (Trade) Dose Ordered Sig/Allyson Route PRN Reason Start Time Stop Time Status Last Admin Dose Admin Acetaminophen (Tylenol) 650 mg Q4H PRN ORAL fever 03/15/19 03:15 04/14/19 03:14 Acetaminophen (Tylenol) 650 mg Q4H PRN RECTAL fever 03/15/19 03:15 04/14/19 03:14 Bisacodyl (Dulcolax) 10 mg DAILYPRN PRN RECTAL Constipation 03/15/19 03:15 04/14/19 03:14 Dextrose (Dextrose 50%) 25 ml Q30M PRN IV Hypoglycemia 03/15/19 03:15 04/14/19 03:14 Dextrose (Dextrose 50%) 50 ml Q30M PRN IV Hypoglycemia 03/15/19 03:15 04/14/19 03:14 Dextrose/Sodium Chloride 1,000 ml @ 100 mls/hr Q10H IV 03/15/19 10:30 04/14/19 10:29 03/15/19 11:38 Docusate Sodium (Colace) 100 mg EVERY 12 HOURS ORAL 03/15/19 09:00 04/14/19 08:59 03/15/19 08:34 Enoxaparin Sodium (Lovenox) 40 mg Q24H SUBQ 03/15/19 04:15 04/14/19 04:14 03/15/19 04:09 Gadobutrol (Gadavist) 7.5 mmol NOW PRN IV Radiology Procedure 03/15/19 09:00 03/17/19 08:59 Hydromorphone HCl (Dilaudid) 0.5 mg Q4H PRN IVP Moderate Pain (Pain Scale 4-6) 03/15/19 18:30 03/22/19 18:14 Hydromorphone HCl (Dilaudid) 1 mg Q4H PRN IVP Severe Breakthru Pain (>7) 03/15/19 18:30 03/22/19 18:29 03/15/19 19:29 Ibuprofen (Motrin) 600 mg Q6H PRN ORAL Mild Pain (Pain Scale 1-3) 03/15/19 18:15 04/14/19 18:14 Lorazepam (Ativan 2mg/ml 1ml) 0.5 mg Q4H PRN IV For Anxiety or seizure 03/15/19 03:15 03/22/19 03:14 Lorazepam (Ativan) 1 mg Q4H PRN ORAL For Anxiety / agitation 03/15/19 03:15 03/22/19 03:14 Magnesium Hydroxide (Mom) 30 ml HSPRN PRN ORAL Constipation 03/15/19 03:15 04/14/19 03:14 Ondansetron HCl (Zofran) 4 mg Q6H PRN IVP Nausea & Vomiting 03/15/19 03:15 04/14/19 03:14 03/15/19 14:41 Pantoprazole (Protonix) 40 mg DAILY ORAL 03/15/19 09:00 04/14/19 08:59 03/15/19 08:34 Zolpidem Tartrate (Ambien) 5 mg HSPRN PRN ORAL Insomnia 03/15/19 21:00 03/22/19 20:59 Assessment/Plan Assessment: #Encephalopathy #Migraine headaches - r/o generalized tonic clonic seizures - Aspiration/seizure precautions - prn ativan - Drug screen - Neurology consult - MRI brain to r/o lupus cerebritis given hx of SLE #hx of SLE - Denies taking any medications, s/p dose of hydrocortisone in ED - IV fluids - Supp care Emely Lewis MD Mar 15, 2019 20:00
--- NOTE | 2019-03-15 20:40 | Consultation ---
Consult Note Consult Note Cardiology for Dr. Knight Full note dictated #[id number] Korina Nelson MD Mar 15, 2019 20:40
[2019-03-15] MEDS ORDERED: Zolpidem 5mg tab ORAL PRN (21:00)
--- NOTE | 2019-03-15 22:00 | Consultation ---
DATE OF CONSULTATION: 03/15/2012 REASON FOR CONSULT: Chest pain. HISTORY OF PRESENT ILLNESS: The patient is a 53-year-old woman with a history of lupus and migraines, who was admitted with altered mental status. She developed chest pain while in the hospital and Cardiology evaluation was requested. The patient currently complains of headache and severe nausea. History is obtained primarily from the chart and the patient's daughter. There is no previous history of coronary disease, myocardial infarction, or angina. No history of congestive heart failure. She has a long history of migraines and is treated for them at [facility]. She has a history of lupus, but family states she is in remission. MEDICATIONS: Currently, Lovenox 40 mg daily subcutaneously, Ambien 5 mg at bedtime p.r.n., Dilaudid 0.4 mg IV p.r.n. for moderate and 1 mg IV q.4 hours p.r.n. for severe pain, Motrin 600 mg 6 hours p.r.n. for mild pain, Colace 100 mg p.o. b.i.d., and Protonix 40 mg p.o. daily. ALLERGIES: No known drug allergies. PAST MEDICAL HISTORY: As noted above. SOCIAL HISTORY: No history of alcohol or drug use. Occasional marijuana use. PHYSICAL EXAMINATION: VITAL SIGNS: Blood pressure is 113/60, pulse 67 and regular, respirations 18, and afebrile. GENERAL: Alert and well-developed woman, who appears in moderate distress with headache and nausea. HEENT: Normocephalic and atraumatic. Pupils are equal, round, and reactive to light. Oral mucosa are moist. NECK: Supple. There is a healed midline surgical scar (thyroid surgery). LUNGS: Clear to auscultation bilaterally. HEART: Regular rate and rhythm. S1, S2 with no murmur or S3. ABDOMEN: Soft, nontender, and nondistended. No palpable mass. EXTREMITIES: No cyanosis, clubbing, or edema. A 2+ dorsalis pedis pulses bilaterally. DIAGNOSTIC DATA: EKG shows sinus bradycardia at the rate of 48 beats per minute, axis +60 degrees, possible left atrial enlargement. No ST-segment or T-wave changes. LABORATORY DATA: Troponin 0. Potassium 3.4, BUN 10, and creatinine 0.7. Toxicology screen positive for THC. Hemoglobin 11.3, white blood count 3900, and platelets 268,000. ASSESSMENT AND RECOMMENDATIONS: The patient is a 53-year-old woman with a history of migraines and lupus, who presents with altered mental status. Currently, has headache and nausea. She had chest pain earlier, but currently has no chest pain or dyspnea. Her EKG does not show any ischemic changes and troponin is negative. I would recommend repeating the troponin and EKG in the morning. An echo can be obtained when she has recovered from her current acute migraine and further cardiac workup as indicated and she has recovered from her current acute migraine, to assess left ventricular function and valves. Further cardiac workup can be considered based on her clinical course. Neurology evaluation is pending with regard to her migraines and brain MRI result is noted. No mass, hemorrhage, or acute infarct. I would recommend repeating the troponin and EKG in the morning. An echo will be obtained to evaluate left ventricular function and valves once she has recovered from the acute migraine. Neurology evaluation is pending for further evaluation of her altered mental status and migraine. Korina Nelson M.D. DR: CONOR JOB#: [id number] CC:
[2019-03-16] VITALS: BP 136/76
[2019-03-16 04:00] VITALS: BP 107/43
[2019-03-16] MEDS: D5NS 1,000 ML IV SCH ×2 (06:18→16:30)
[2019-03-16 08:00] VITALS: BP 115/73
[2019-03-16] MEDS ORDERED: Enoxaparin 40mg Inj SUBQ SCH (09:00)
[2019-03-16] MEDS: Docusate 100mg cap ORAL SCH (09:00)
[2019-03-16 12:00] VITALS: BP 122/80
--- NOTE | 2019-03-16 15:19 | Cardiology Progress Note ---
Assessment/Plan Problem List: (1) Chest pain (2) Migraine (3) Altered level of consciousness (4) SLE (systemic lupus erythematosus) Status: stable, progressing Status Narrative Pt stable, w/ resolution of migraine sx and no further cp. Has ruled out for RI Assessment/Plan Will check ECHO today - evaluate LV function, wall motion and valves. Agree w/ discharge plan d/w Dr Lewis Subjective ROS Limited/Unobtainable: No Subjective Cardiology for Dr. Knight Pt's nausea and h/a have resolved. No further chest pain Objective Last 24 Hour Vital Signs Date Time Temp Pulse Resp B/P (MAP) Pulse Ox O2 Delivery O2 Flow Rate FiO2 03/16/19 12:00 98.4 59 14 122/80 (94) 100 03/16/19 12:00 Room Air 03/16/19 11:38 65 03/16/19 08:00 Room Air 03/16/19 08:00 98.1 46 18 115/73 (87) 99 03/16/19 07:51 46 03/16/19 04:00 Room Air 03/16/19 04:00 50 03/16/19 04:00 43 03/16/19 04:00 97.2 50 18 107/43 (64) 97 03/16/19 00:00 Room Air 03/16/19 00:00 52 03/16/19 00:00 97.7 53 18 136/76 (96) 97 03/15/19 21:00 Room Air 03/15/19 20:00 70 03/15/19 20:00 98.1 53 18 134/77 (96) 97 03/15/19 16:00 97.0 61 18 113/63 (80) 99 03/15/19 16:00 91 General Appearance: WD/WN, no apparent distress, alert EENT: PERRL/EOMI Neck: supple, no JVD, other - healed midline surg scar ( s/p removal of thyroid cyst) Cardiovascular: normal peripheral pulses, normal rate, regular rhythm, no gallop/murmur Respiratory/Chest: lungs clear Abdomen: non tender, soft Intake and Output 03/15/19 03/16/19 19:00 07:00 Intake Total 1060 ml 1440 ml Output Total 750 ml Balance 1060 ml 690 ml Intake Oral 360 ml 240 ml IV Total 700 ml 1200 ml Output Urine Total 600 ml Emesis 150 ml # Voids 1 Laboratory Tests Test 03/15/19 17:18 Ammonia < 10 umol/L (11-32) Korina Hamm MD Mar 16, 2019 15:19
[2019-03-16 16:00] VITALS: BP 118/76
--- NOTE | 2019-03-16 16:52 | Neurology Progress Note ---
Interim History Interim History ROS Limited/Unobtainable: No Interim History No new events today. Patient remains intact Objective Physical Exam Last Vital Signs Date Time Temp Pulse Resp B/P (MAP) Pulse Ox O2 Delivery O2 Flow Rate FiO2 03/16/19 12:00 98.4 59 14 122/80 (94) 100 03/16/19 12:00 Room Air Laboratory Tests Test 03/15/19 17:18 Ammonia < 10 umol/L (11-32) L Impression/Recommendations Problems: (1) Migraine Assessment & Plan: Long, well recorded history but no episodes of LOC or shaking, or other focal deficit ever reported by the patient. Reporting that the symptoms of her headache have now largely resolved. (2) Transient alteration of awareness Assessment & Plan: Found unconscious and shaking today by family member. Has never had a seizure or episode of LOC previously. Followed by neurology at [facility] for migraines. DIscussed that should be followed up with EEG as an outpatient with Neuro at [facility] (3) SLE (systemic lupus erythematosus) Status: doing well, stable, tolerating diet Stacey Cade N.P. Mar 16, 2019 16:52
--- NOTE | 2019-03-16 17:29 | Discharge Summary ---
Discharge Summary Hospital Course Date of Admission Mar 15, 2019 at 00:32 Date of Discharge Mar 16, 2019 at 16:46 Admitting Diagnosis aloc Reason for Hospitalization: encephalopathy HPI Julianna Morris is a 53 year old female who was admitted on Mar 15, 2019 at 00:32 for Altered Level Of Consciousness Consultations Neurology Cardiology Procedures None Hospital Course Patient is a 53 y/o AA female who presents with altered level of consciousness. Patient's mother was called by the patient's children because she was having some shaking episodes and speaking incoherently. Mother states she was on the floor shaking. Patient's mother tried to take her to the hospital but the patient was acting bizarrely and she pulled over and called 911. Paramedics were summoned. They were unable to get much history aside from that the patient has a history of lupus and migraines. An Accu-Chek in the field was 68 sitting and they had sinus bradycardia on EKG. The patient was unable to answer any questions with them. She does have a history of migraines according to the mother. Mom denies any drug use that she is aware of. Patient admitted overnight from the ED. CT brain reportedly negative. Pt verbal and able to answer questions but "tunes out" of the conversation intermittently. Due to history of SLE, MRI brain was done that was negative for cerebritis or any other acute pathology. No seizure activity while at [facility] observed. Neurology was consulted as well, and cleared the patient for DC home today as the patient' s mental status was much improved and was back to baseline. She was seen by Cardiology due to some mention of chest pain early on, however patient denied ever having chest pain to me and others, trops neg, seen and cleared by cardiology for dc home. Incidentally Utox was pos for cannabis. Discharge Medications Medication Profile: No Active Prescriptions or Reported Meds Discharge Discharge Disposition Patient was discharged to Home (01) Discharge Diagnoses: (1) SLE (systemic lupus erythematosus) Emely Lewis MD Mar 16, 2019 17:29
--- NOTE | 2019-03-21 14:48 | Cardiology Report ---
APPROVED REPORT EXAM: Two-dimensional and M-mode echocardiogram with Doppler and color Doppler. INDICATION Chest Pain M-Mode DIMENSIONS IVSd1.1 (0.7-1.1cm)Left Atrium (MM)2.4 (1.6-4.0cm) LVDd4.4 (3.5-5.6cm)Aortic Root3.4 (2.0-3.7cm) PWd0.8 (0.7-1.1cm)Aortic Cusp Exc.1.6 (1.5-2.0cm) IVSs1.2 cm LVDs3.1 (2.5-4.0cm) PWs1.0 cm Other Information Technically difficult study due to poor acoustical windows. Normal left ventricular chamber size, systolic function and grossly normal wall motion to extent visualized. Left ventricular ejection fraction estimated to be 55-60 %. Mild left ventricular hypertrophy. No evidence of pericardial fat or effusion. All other cardiac chamber sizes are within normal limits. Focal aortic valve sclerosis with normal cusp excursion. Thickened mitral valve leaflets with normal excursion. Mitral annulus and aortic root calcification. Normal pulmonic valve structure. Normal tricuspid valve structure. IVC dilated at 2.3 cm without physiologic collapse suggestive of increased RA pressure. A color flow and spectral Doppler study was performed and revealed: No aortic regurgitation. Mild to moderate mitral regurgitation. Tatiana left ventricular diastolic funcion . Mild tricuspid regurgitation. Tricuspid systolic velocities suggests peak right ventricular systolic pressure of 32mmHg.
--- NOTE | 2019-03-21 16:09 | Cardiology Report ---
APPROVED REPORT EKG Measurement Heart [id number] Sinus bradycardia Possible Left atrial enlargement Borderline ECG
== END 2019-03-16 16:46 | disposition home or self-care (01) ==
LOC: EDBD 22:14 → EMR 22:24 → 2W 03-15 00:32 → EDBEDREQ 03-15 00:39 → 2W 03-15 01:42 → OBSVTOIN 03-16 05:57 → INTOOBSV 03-16 05:57
DX: M32.9 Systemic lupus erythematosus, unspecified (principal); G43.909 Migraine, unspecified, not intractable, without status migrainosus
CPT/HCPCS: 36415 ×2; 70450; 70553; 71045 ×2; 80048; 80053; 80307; 81003; 82140 ×2; 82248; 82550; 82607; 82746; 83605; 83735; 84100; 84443; 84484; 85007; 85025 ×2; 85651; 86140; 86592; 93005; 93306; 96361; 96374; 96375; 97116; 97161; 99285; A9585; G0378 ×2; G0480 ×3; J1170; J1200; J1650; J1720; J1885; J2405; J2765; J7050; 80329; J8499